=== PATIENT | female | born 1995 | race Caucasian/White ===

== ENCOUNTER 2018-06-17 07:55 | Day surgery (SDC) | payer BC ==
[2018-06-15 10:48] VITALS: BMI 21.5
[~2018-06-17 07:55] MED LIST: LACTATED RINGERS 1,000 ML IV SCH; LIDOCAINE 1% 20 ML VIAL (10MG/ML) FOR IV START INTRADERMA PRN
[2018-06-17 08:16] VITALS: TEMP 97.4
[2018-06-17] MEDS ORDERED: MIDAZOLAM 2 MG/2 ML VIAL ONE (09:33)
[2018-06-17] MEDS ORDERED: LIDOCAINE 1% INJ 10MG/ML (20 ML MDV) ONE (09:33)
[2018-06-17] MEDS ORDERED: PROPOFOL 10 MG/ML 20 ML VIAL IV ONE (09:33)
--- NOTE | 2018-06-17 10:07 | P.PCN ---
Date of Procedure: 06/17/18 Description of Procedure: BRIEF HISTORY: 23-year-old female who is seen for outpatient colonoscopy. She was initially seen in the outpatient setting with complaints of 3-4 loose bowel movements daily. She reported the bowel movements were typically after eating. She had associated urgency with bowel movement. No reports of blood with bowel movements or black tarry stools. The patient had tried anti-diarrheal medications and probiotics in the outpatient setting but did not feel that it helped with her symptoms. In addition she had reported periumbilical pain occurring once per week. She described it as sharp and cramping in nature. She denies any dysphagia, odynophagia or reflux but stated that she would occasionally get episodes of nausea and vomiting. No prior endoscopic evaluation reported. PROCEDURE PERFORMED: Colonoscopy with biopsy. PREOPERATIVE DIAGNOSIS: Change in bowel habits, diarrhea, abdominal pain. ESTIMATED BLOOD LOSS: Minimal. IV sedation per Anesthesia. PROCEDURE: After informed consent was obtained, the patient, was brought into the endoscopy unit. IV sedation was administered by Anesthesia under continuous monitoring. Digital rectal examination was normal. Initially the Olympus CF-190 flexible video colonoscope was then inserted in the rectum, gradually advanced into the cecum without any difficulty. The terminal ileum was intubated and appeared normal, biopsies were taken. Careful examination was performed as the scope was gradually being withdrawn. Ileocecal valve and the appendiceal orifice were visualized and appeared normal. Prep was excellent. Mucosa of the cecum, ascending colon, transverse colon, descending colon, sigmoid colon, and rectum appeared normal, with biopsies of the right colon, transverse colon taken. No lesions were seen in the rectum, with mild internal hemorrhoids noted. The patient tolerated the procedure well. IMPRESSION: Normal-appearing colon from rectum to cecum. Random biopsies of the terminal ileum, right colon, transverse colon and left colon. Mild internal hemorrhoids. RECOMMENDATIONS: Findings of this examination were discussed with the patient and her father. Okay to resume diet. Continue fiber supplementation and Levsin as needed for abdominal pain. Follow-up in gastroenterology clinic as previously scheduled. Await pathology from biopsies.
[2018-06-17 10:37] VITALS: BP 103/66; PULSE 56; RESP 14
== END 2018-06-17 11:01 | disposition home or self-care (01) ==
LOC: ORWHC2ENDO 07:55
PROVIDERS: ATTEND Internal Medicine
DX: R19.4 Change in bowel habit (principal); R10.9 Unspecified abdominal pain; K64.8 Other hemorrhoids; Z88.4 Allergy status to anesthetic agent; Z88.0 Allergy status to penicillin; Z88.8 Allergy status to other drugs, medicaments and biological substances; Z79.02 Long term (current) use of antithrombotics/antiplatelets; Z79.899 Other long term (current) drug therapy
CPT/HCPCS: 81025; 88305; 45380; J2250; J2001; J2704

== ENCOUNTER → 2018-11-05 | Outpatient (CLI) | payer BC ==
--- NOTE | 2018-11-05 14:41 | US ---
EXAMINATION TYPE: US pelvic complete DATE OF EXAM: 11/05/2018 COMPARISON: CT CLINICAL HISTORY: N94.6 Severe menstrual cramps. Patient stated since no longer on control she c/o severe menstrual cramps on first day of cycle. TECHNIQUE: Transabdominal (TA). Transabdominal sonographic images of the pelvis were acquired. Date of LMP: 10/16/2018 EXAM MEASUREMENTS: Uterus: 7.5 x 4.0 x 2.5 cm Endometrial Stripe: 0.7 cm Right Ovary: 5.0 x 2.1 x 2.0 cm Left Ovary: 3.9 x 3.0 x 2.3 cm 1. Uterus: Anteverted; appears wnl 2. Endometrium: thickness is wnl for day 22LMP. 3. Right Ovary: exophytic appearing simple cyst = 1.2 x 1.4 x 1.4cm; otherwise small follicles are n oted 4. Left Ovary: small follicles are noted (color flow is seen in bilateral ovary). 5. Bilateral Adnexa: bowel is noted peristalsing adjacent to right uterus and medial to right ovary. 6. Posterior cul-de-sac: free fluid is seen here = 3.2 x 2.2 x 1.8cm. Urinary bladder is sonolucent. Posterior wall is normal. IMPRESSION: 1. 1.4 cm cyst right ovary 2. Bilateral ovarian follicles.
== END ==
LOC: RADUSWWP 12:10
PROVIDERS: ATTEND Internal Medicine
DX: N83.201 Unspecified ovarian cyst, right side (principal)
CPT/HCPCS: 76856

== ENCOUNTER → 2019-12-20 | Outpatient (CLI) | payer BC ==
[2019-12-21 11:46] LABS: Cow's Milk IgE Class CLASS 0; Egg White IgE <0.10 kU/L (<0.10); Peanut IgE <0.10 kU/L (<0.10); Potato IgE <0.10 kU/L (<0.10); Potato IgE Class CLASS 0; Soybean IgE <0.10 kU/L (<0.10)
== END | disposition home or self-care (01) ==
LOC: LABWHC1 07:27
PROVIDERS: ATTEND Otolaryngology
DX: J30.89 Other allergic rhinitis (principal)
CPT/HCPCS: 36415; 86003

== ENCOUNTER 2021-06-06 13:18 | Inpatient (IN) | payer BC ==
[2021-06-11] MEDS ORDERED: METHYLERGONOVINE 0.2 MG/ML 1 ML AMP IM PRN (06:17)
[2021-06-11] MEDS ORDERED: OXYTOCIN 10 UNIT/ML 1 ML VIAL IM PRN (06:17)
[2021-06-11] MEDS ORDERED: TERBUTALINE 1 MG/ML VIAL SQ PRN (06:17)
[2021-06-11] MEDS ORDERED: LIDOCAINE 1% (PF) 10 MG/ML (30 ML SDV) SQ PRN (06:17)
[2021-06-11] MEDS ORDERED: CARBOPROST TROMETHAMINE 250 MCG/ML 1 ML AMP IM PRN (06:17)
[2021-06-11] MEDS: LACTATED RINGERS 1,000 ML IV SCH ×2 (06:25→09:35)
[2021-06-11] MEDS ORDERED: OXYTOCIN 30 UNITS/500 ML NS 30 UNIT in SALINE 1 500ML.BAG IV SCH ×2 (06:30→14:00)
[2021-06-11 07:37] LABS: Basophils # (A) 0.1 k/uL (0-0.2); Basophils % (A) 1 %; Eosinophils % (A) 0 %; HCT 40.7 % (34.0-46.0); HGB 12.9 gm/dL (11.4-16.0); Lymphocytes # (A) 1.6 k/uL (1.0-4.8); Lymphocytes % (A) 10 %; MCH 29.8 pg (25.0-35.0); MCHC 31.7 g/dL (31.0-37.0); Mean Platelet Volume 9.2; Monocytes # (A) 0.7 k/uL (0-1.0); Monocytes % (A) 5 %; Neutrophils # (A) 13.1 k/uL (1.3-7.7); Neutrophils % (A) 84 %; Platelet Count 248 k/uL (150-450); RBC 4.32 m/uL (3.80-5.40); RDW 13.2 % (11.5-15.5); WBC 15.6 k/uL (3.8-10.6)
[2021-06-11] MEDS ORDERED: BUTORPHANOL 1 MG/ML 1 ML VIAL IV PRN (08:49)
[2021-06-11] MEDS ORDERED: HYDROCORTISONE 2.5% RECTAL CREAM 30 GM TUBE RECTAL PRN (13:51)
[2021-06-11] MEDS ORDERED: diphenhydrAMINE 25 MG CAP PO PRN (13:51)
[2021-06-11] MEDS ORDERED: ACETAMINOPHEN TAB 325 MG TAB PO PRN (13:51)
[2021-06-11] MEDS ORDERED: BENZOCAINE/MENTHOL SPRAY 1 GM/SPRAY AEROSOL TOPICAL PRN (13:51)
[2021-06-11] MEDS ORDERED: SIMETHICONE 80 MG CHEWABLE PO PRN (13:51)
[2021-06-11] MEDS ORDERED: LANOLIN CREAM 5 GM TUBE TOPICAL PRN (13:51)
[2021-06-11] MEDS ORDERED: diphenhydrAMINE 50 MG/ML 1 ML VIAL IVP PRN ×2 (13:51)
[2021-06-11] MEDS ORDERED: ZOLPIDEM 5 MG TAB PO PRN (13:51)
[2021-06-11] MEDS ORDERED: diphenhydrAMINE 50 MG CAP PO PRN (13:51)
--- NOTE | 2021-06-11 13:54 | P.PROBDLV ---
Vaginal Delivery Note - . Vaginal Delivery Note: This is a 26-year-old 1 para 0 that presented to labor and delivery at 40-5/7 weeks for induction of labor secondary to postdates. Patient was admitted and Pitocin induction of labor was begun per hospital protocol. Patient underwent amniotomy and clear fluid was obtained. Patient progressed through labor eventually becoming uncomfortable requesting epidural placement. Epidural was placed without difficulty by the anesthesia department. Patient did get good relief from the epidural. Patient progressed to complete began pushing and had a normal spontaneous vaginal delivery of a viable male infant at 1334, weight of 7 pounds 7.8 ounces, Apgars of 7 and 10 at one and 5 minutes respectively. After two-minute delayed the umbo cord was doubly clamped and cut and the infant was handed to the maternal abdomen. A spontaneous cry was noted. The placenta was delivered spontaneously intact with three-vessel cord being noted. On inspection the patient's vaginal vault a first-degree vaginal laceration was appreciated this was repaired in usual fashion with 3-0 Rapide. Hemostasis was noted after delivery. Uterus is noted to be boggy during repair therefore Methergine was given. Uterus was noted to be firm and below the umbilicus afterwards. The bladder was drained for partially 100 mL of clear yellow urine after delivery of the placenta. Patient and tolerated delivery well and are resting comfortable he. All counts were noted to be correct 2 at the end of delivery.
[2021-06-11] MEDS: IBUPROFEN 600 MG TAB PO SCH ×2 (14:05→20:47)
[2021-06-11] MEDS: SENNOSIDES-DOCUSATE SODIUM 1 EACH TAB PO SCH (20:47)
[2021-06-12] MEDS: IBUPROFEN 600 MG TAB PO SCH ×3 (03:11→14:23)
[2021-06-12] MEDS: SENNOSIDES-DOCUSATE SODIUM 1 EACH TAB PO SCH (07:51)
[2021-06-12] MEDS ORDERED: PRENATAL VIT-IRON-FOLIC ACID 1 EACH CAP PO SCH (09:00)
[2021-06-12] MEDS ORDERED: SERTRALINE 25 MG TAB PO SCH (09:00)
--- NOTE | 2021-06-12 09:02 | P.DS ---
Providers Date of admission: 06/11/21 06:07 Expected date of discharge: 06/12/21 Attending physician: Orquidea Woods Primary care physician: Stated None - Discharge Diagnosis(es) (1) Post-dates Current Visit: Yes Status: Acute (2) Status post vaginal delivery Current Visit: Yes Status: Acute (3) Obstetric vaginal laceration with first degree perineal laceration Current Visit: Yes Status: Acute Hospital Course: This is a 26-year-old G1 now P1 status post normal spontaneous vaginal delivery. Patient was admitted to labor and delivery on 07/08 for induction of labor secondary to postdates. Patient progressed well through labor eventually receiving epidural for pain management during labor. Patient progressed to complete began pushing and had a normal spontaneous vaginal delivery of a viable male at 1334, weight of 7 pounds 7.8 ounces. Patient has done well post . She is ambulating and voiding without difficulty. She is tolerating a regular diet without nausea or vomiting. She states her pain is well- controlled. She would like discharge home at 24 hours. Patient Condition at Discharge: Good Plan - Discharge Summary New Discharge Prescriptions: No Action Sertraline [Zoloft] 25 mg PO DAILY Pnv No.95/Ferrous Fum/Folic AC [ Multivitamin Tablet] 1 tab PO DAILY Discharge Medication List Pnv No.95/Ferrous Fum/Folic AC [ Multivitamin Tablet] 1 tab PO DAILY 06/11/21 [History] Sertraline [Zoloft] 25 mg PO DAILY 06/11/21 [History] Follow up Appointment(s)/Referral(s): Orquidea Woods DO [Doctor of Osteopathic Medicine] - 4 Weeks Patient Instructions/Handouts: Vaginal Delivery (DC), Vaginal Delivery (GEN) Activity/Diet/Wound Care/Special Instructions: Patient can expect cramping for which she is to take Motrin [id number] 600 mg every 6 hours as needed for pain. Menstrual-like bleeding is expected for 4- 6 weeks postdelivery. Patient is to follow-up in 4 weeks for routine visit, should she have any concerns prior to this she is urged to call the office. Discharge Disposition: HOME SELF-CARE
[2021-06-12 09:04] VITALS: BP 115/69; PULSE 70; RESP 18; TEMP 97.6
== END 2021-06-12 15:58 | disposition home or self-care (01) | DRG 807 ==
LOC: 4FBP 06-11 06:07
PROVIDERS: ADMIT Obstetrics & Gynecology Obstetrics; ATTEND Obstetrics & Gynecology Obstetrics
PROC: 10E0XZZ Delivery of Products of Conception, External Approach (ICD-10-PCS; principal; 2021-06-11)
PROC: 0HQ9XZZ Repair Perineum Skin, External Approach (ICD-10-PCS; 2021-06-11)
DX: O48.0 Post-term pregnancy (principal); Z37.0 Single live birth; O70.0 First degree perineal laceration during delivery
CPT/HCPCS: 85025; 86850; 86900; 86901

== ENCOUNTER 2023-03-16 12:12 | Inpatient (IN) | payer BC ==
[2023-03-17] MEDS ORDERED: TRANEXAMIC 1,000 MG/100ML-NACL 1,000 MG in EMPTY BAG 1 BAG IV PRN (06:25)
[2023-03-17] MEDS ORDERED: LIDOCAINE 0.5% (PF) 5 MG/ML (50 ML SDV) SQ PRN (06:25)
[2023-03-17] MEDS ORDERED: METHYLERGONOVINE 0.2 MG/ML 1 ML AMP IM PRN (06:25)
[2023-03-17] MEDS ORDERED: OXYTOCIN 10 UNIT/ML 1 ML VIAL IM PRN (06:25)
[2023-03-17] MEDS ORDERED: CARBOPROST TROMETHAMINE 250 MCG/ML 1 ML AMP IM PRN (06:25)
[2023-03-17] MEDS ORDERED: miSOPROStoL 200 MCG TAB PO PRN (06:25)
[2023-03-17] MEDS ORDERED: TERBUTALINE 1 MG/ML VIAL SQ PRN (06:25)
[2023-03-17] MEDS: LACTATED RINGERS 1,000 ML IV SCH (06:58)
[2023-03-17] MEDS: OXYTOCIN 30 UNITS/500 ML NS 30 UNIT in SALINE 1 500ML.BAG IV SCH (07:03)
[2023-03-17 07:20] LABS: Basophils % (A) 0 %; Eosinophils % (A) 0 %; HCT 37.2 % (34.0-46.0); HGB 13.2 gm/dL (11.4-16.0); Lymphocytes # (A) 1.6 k/uL (1.0-4.8); Lymphocytes % (A) 16 %; MCH 31.7 pg (25.0-35.0); MCHC 35.5 g/dL (31.0-37.0); MCV 89.3 fL (80.0-100.0); Mean Platelet Volume 8.9; Monocytes # (A) 0.6 k/uL (0-1.0); Monocytes % (A) 6 %; Neutrophils # (A) 7.6 k/uL (1.3-7.7); Neutrophils % (A) 77 %; Platelet Count 227 k/uL (150-450); RBC 4.16 m/uL (3.80-5.40); RDW 13.1 % (11.5-15.5)
[2023-03-17] MEDS ORDERED: ROPIVACAINE 5 MG/ML 30 ML VIAL ONE (10:17)
[2023-03-17] MEDS ORDERED: SODIUM CHLORIDE 0.9% 250 ML BAG ONE (10:17)
[2023-03-17] MEDS ORDERED: fentaNYL (PF) 50 MCG/ML 5 ML AMP ONE (10:17)
[2023-03-17] MEDS ORDERED: HYDROCORTISONE 2.5% RECTAL CREAM 30 GM TUBE RECTAL PRN (13:12)
[2023-03-17] MEDS ORDERED: diphenhydrAMINE 25 MG CAP PO PRN (13:12)
[2023-03-17] MEDS ORDERED: ZOLPIDEM 5 MG TAB PO PRN (13:12)
[2023-03-17] MEDS ORDERED: diphenhydrAMINE 50 MG CAP PO PRN (13:12)
[2023-03-17] MEDS ORDERED: LANOLIN CREAM 5 GM TUBE TOPICAL PRN (13:12)
[2023-03-17] MEDS ORDERED: BENZOCAINE/MENTHOL SPRAY 1 GM/SPRAY AEROSOL TOPICAL PRN (13:12)
[2023-03-17] MEDS ORDERED: diphenhydrAMINE 50 MG/ML 1 ML VIAL IVP PRN ×2 (13:12)
[2023-03-17] MEDS ORDERED: SIMETHICONE 80 MG CHEWABLE PO PRN (13:12)
--- NOTE | 2023-03-17 13:12 | P.PROBDLV ---
Vaginal Delivery Note - . Vaginal Delivery Note: 27-year-old G2, P1 at 39-1/7 weeks presents for induction of labor. Patient has been receiving routine care which has been essentially uncomplicated. Patient was admitted and Pitocin induction of labor was begun. Patient underwent amniotomy and clear fluid was obtained. Patient made good progress through labor eventually becoming uncomfortable and requesting epidural placement. Epidural was placed without difficulty with anesthesia department. Patient progressed to complete began pushing and had normal spontaneous vaginal delivery of a viable male at 1259, compound left hand was appreciated in the right occiput anterior presentation. Spontaneous cry was noted at . After 2-minute delay the umbilical cord was doubly clamped and cut and the placenta was delivered spontaneously intact with a three-vessel cord being noted. On inspection the patient's vaginal vault a first-degree vaginal laceration was appreciated and repaired in the usual fashion with 3-0 Rapide. Uterus was noted to be firm below the umbilicus after delivery of the placenta. weight is pending as the remains on the maternal abdomen All counts were noted be correct x 2 at the end of the delivery. Patient and tolerated delivery well and are resting comfortably
[2023-03-17] MEDS: IBUPROFEN 600 MG TAB PO SCH (14:37)
[2023-03-17] MEDS: ACETAMINOPHEN TAB 325 MG TAB PO PRN (20:31)
[2023-03-17] MEDS: SENNOSIDES-DOCUSATE SODIUM 1 EACH TAB PO SCH (20:33)
[2023-03-18 07:36] VITALS: BP 122/76; PULSE 67; RESP 17; TEMP 98.1
[2023-03-18] MEDS: PRENATAL VIT-IRON-FOLIC ACID 1 EACH TABLET PO SCH (07:59)
--- NOTE | 2023-03-18 08:57 | P.HPOB ---
History of Present Illness H&P Date: 03/17/23 Chief Complaint: IUP at 39-1/7 weeks This is a 27-year-old at 39-1/7 weeks that presents to labor and delivery for induction of labor. Patient has been mikki for multiple days and has been uncomfortable requesting augmentation of labor. Patient has been receiving routine care which has been essentially uncomplicated. This morning patient notes good movement denies vaginal bleeding or loss of fluid. Patient notes contractions this morning. Review of Systems Constitutional: Denies chills, Denies fatigue, Denies fever Ears, nose, mouth and throat: Denies headache Cardiovascular: Reports leg edema Respiratory: Denies dyspnea Gastrointestinal: Denies constipation, Denies diarrhea, Denies nausea, Denies vomiting Genitourinary: Reports Past Medical History Past Medical History: No Reported History History of Any Multi-Drug Resistant Organisms: None Reported Past Surgical History: Tonsillectomy Additional Past Surgical History / Comment(s): Crowell teeth Past Anesthesia/Blood Transfusion Reactions: No Reported Reaction Past Psychological History: Anxiety Smoking Status: Never smoker Past Alcohol Use History: None Reported Past Drug Use History: None Reported - Past Family History Mother Family Medical History: No Reported History Medications and Allergies Home Medications Medication Instructions Recorded Confirmed Type Pnv No.95/Ferrous Fum/Folic AC 1 tab PO DAILY 06/11/21 03/17/23 History [ Multivitamin Tablet] Ondansetron Odt [Zofran Odt] 4 mg PO Q8HR PRN 03/17/23 03/17/23 History Allergies Allergy/AdvReac Type Severity Reaction Status Date / Time amoxicillin Allergy Nausea & Verified 06/11/21 06:16 Vomiting naproxen Allergy Vomiting Verified 06/11/21 06:16 Penicillins Allergy Vomiting Verified 06/11/21 06:16 Exam Osteopathic Statement: *. No significant issues noted on an osteopathic structu ral exam other than those noted in the History and Physical/Consult. Vital Signs Temp Pulse Resp BP 03/17/23 06:21 97.8 F 99 16 113/73 Intake and Output 03/16/23 03/17/23 03/17/23 22:59 06:59 14:59 Other: Weight 74.389 kg Targeted physical exam is performed this date General is a well-nourished well- developed female in no acute distress, breathing is noted to be nonlabored, heart has a regular rate and rhythm, abdomen is gravid and appropriate for gestational age, on cervical exam she is 3-4/50/-2 station amniotomy is performed and clear fluid was obtained. heart tones are noted to be category 1 and she is mikki every 1 to 3 minutes. Results Result Diagrams: 03/17/23 06:55 Assessment and Plan (1) Term Current Visit: Yes Status: Acute Code(s): Z34.90 - ENCNTR FOR SUPRVSN OF NORMAL , UNSP, UNSP TRIMESTER SNOMED Code(s): 47297745 Plan: 27-year-old G2, P1 at 39-1/7 weeks presents for induction of labor. Patient is admitted and Pitocin induction of labor has begun per hospital protocol. Options for analgesia are discussed including Stadol, nitrous, epidural. Patient will consider. She does desire epidural when appropriate. Anticipate spontaneous vaginal delivery later today.
--- NOTE | 2023-03-18 08:57 | P.DS ---
Providers Date of admission: 03/17/23 06:03 Expected date of discharge: 03/18/23 Attending physician: Orquidea Woods Primary care physician: Azeb Nicole - Discharge Diagnosis(es) (1) Term Current Visit: Yes Status: Acute (2) Obstetric vaginal laceration with first degree perineal laceration Current Visit: No Status: Acute (3) Status post vaginal delivery Current Visit: No Status: Acute Hospital Course: 27-year-old G2 now P2 status postnormal spontaneous vaginal delivery. Patient was admitted to labor and delivery yesterday at 39-1/7 weeks for scheduled induction of labor. Patient had been mikki for multiple days with minimal change in her cervix and desired induction. Patient had been receiving routine care which had been essentially uncomplicated. For full details on this patient please see the dictated history and physical. Patient was admitted and Pitocin induction of labor was begun per hospital protocol. Patient underwent amniotomy and clear fluid was obtained. Patient did become uncomfortable and request epidural. Epidural was placed without difficulty by the anesthesia department. Patient progressed quickly to complete began pushing and had a normal spontaneous vaginal delivery of a viable male at 1259, weight of 8 pounds 0 ounces, Apgars of 9 and 9 at 1 and 5 minutes respectively. Patient did sustain a first-degree vaginal laceration which was repaired in the usual fashion with 3-0 Rapide. Patient's course has been uneventful. On this day #1 she is ambulating and voiding without difficulty. She is breast-feeding without difficulty. She is tolerating a regular diet without nausea or vomiting. She states her pain is well-controlled. She denies concerns and would like discharge home. Patient Condition at Discharge: Good Plan - Discharge Summary New Discharge Prescriptions: No Action Ondansetron Odt [Zofran Odt] 4 mg PO Q8HR PRN PRN Reason: Nausea Pnv No.95/Ferrous Fum/Folic AC [ Multivitamin Tablet] 1 tab PO DAILY Discharge Medication List Pnv No.95/Ferrous Fum/Folic AC [ Multivitamin Tablet] 1 tab PO DAILY 06/11/21 [History] Ondansetron Odt [Zofran Odt] 4 mg PO Q8HR PRN 03/17/23 [History] Follow up Appointment(s)/Referral(s): Orquidea Woods DO [Doctor of Osteopathic Medicine] - 6 Weeks Patient Instructions/Handouts: Vaginal Delivery (GEN), Vaginal Delivery (DC) Activity/Diet/Wound Care/Special Instructions: No tub baths or intercourse until 6 weeks . [id number] ibuprofen 6 or milligrams or 3 tablets every 6 hours as needed for pain. Patient is to call the office to make a routine post visit in 6 weeks. Discharge Disposition: HOME SELF-CARE
== END 2023-03-18 13:45 | disposition home or self-care (01) | DRG 807 ==
LOC: 4FBP 03-17 06:03
PROVIDERS: ADMIT Obstetrics & Gynecology Obstetrics; ATTEND Obstetrics & Gynecology Obstetrics
PROC: 10E0XZZ Delivery of Products of Conception, External Approach (ICD-10-PCS; principal; 2023-03-17)
PROC: 0HQ9XZZ Repair Perineum Skin, External Approach (ICD-10-PCS; 2023-03-17)
PROC: 10907ZC Drainage of Amniotic Fluid, Therapeutic from Products of Conception, Via Natural or Artificial Opening (ICD-10-PCS; 2023-03-17)
PROC: 3E033VJ Introduction of Other Hormone into Peripheral Vein, Percutaneous Approach (ICD-10-PCS; 2023-03-17)
DX: O99.344 Other mental disorders complicating childbirth (principal); Z37.0 Single live birth; F41.9 Anxiety disorder, unspecified; O70.0 First degree perineal laceration during delivery; Z3A.39 39 weeks gestation of pregnancy; Z88.1 Allergy status to other antibiotic agents; Z88.5 Allergy status to narcotic agent; Z88.0 Allergy status to penicillin
CPT/HCPCS: 85025; 86850; 86900; 86901